=== PATIENT | male | born 1960 | race Caucasian/White ===

== ENCOUNTER 2018-02-08 07:45 | Emergency (ER) | payer MEDICAID ==
[~2018-02-08] VITALS: Ht 165.1 cm; Wt 79.7 kg
[2018-02-08] MEDS ORDERED: IBUPROFEN 600MG TABLET PO ONE (08:30)
[2018-02-08 12:40] VITALS: BP 136/74
== END 2018-02-08 12:46 | disposition home or self-care (01) ==
LOC: ER 07:45
DX: T80.89XA Other complications following infusion, transfusion and therapeutic injection, initial encounter (principal); M79.1 Myalgia; T45.2X5A Adverse effect of vitamins, initial encounter; Y92.239 Unspecified place in hospital as the place of occurrence of the external cause; R03.0 Elevated blood-pressure reading, without diagnosis of hypertension
CPT/HCPCS: 76881; 99284; Z7610

== ENCOUNTER 2020-03-19 07:32 | Emergency (ER) | payer BC, MEDICAID ==
[~2020-03-19] VITALS: Ht 165.1 cm; Wt 75.0 kg
[2020-03-19] MEDS ORDERED: DEXAMETHASONE 4MG/ML 1ML VIAL IM SCH (09:00)
[2020-03-19] MEDS ORDERED: PENICILLIN G BENZATHINE 1,200,000 UNITS/2ML SYR IM ONE (09:00)
[2020-03-19 09:12] VITALS: BP 149/79
== END 2020-03-19 09:16 | disposition home or self-care (01) ==
LOC: ER 07:32
DX: J03.90 Acute tonsillitis, unspecified (principal)
CPT/HCPCS: 96372; 99284; J0561; J1100